=== PATIENT | male | born 1995 | race Caucasian/White ===

== ENCOUNTER → 2019-05-03 | Outpatient (CLI) | payer OTHER ==
[~2019-05-03] MED LIST: IBUPROFEN 600600 M1 PO
== END ==
LOC: ULTRA 09:36
DX: R16.2 Hepatomegaly with splenomegaly, not elsewhere classified (principal); R76.8 Other specified abnormal immunological findings in serum; R94.5 Abnormal results of liver function studies

== ENCOUNTER → 2020-06-20 | Outpatient (CLI) | payer OTHER | LOC: LABMALL 13:37 | PROVIDERS: ATTEND Specialist | DX: B18.2 Chronic viral hepatitis C (principal) ==